=== PATIENT | male | born 1950 | race Caucasian/White ===

== ENCOUNTER 2017-10-16 09:55 | Emergency (ER) | payer OTHER ==
[2017-10-16] MEDS ORDERED: TYLENOL 325 MG PO ONE (10:11)
--- NOTE | 2017-10-16 10:11 | ERPHSYRPT ---
- History of Present Illness Time Seen by Provider: 10/16/17 10:07 Source: patient, family Exam Limitations: no limitations Physician History: The patient is a 67-year-old right-handed male with his complaining that he tripped at work this morning 2 hours ago falling onto his right side. He did not lose consciousness. He hit his head on the concrete floor as well as his right shoulder. He complains of pain to his right side of his head, right side of his neck, and right shoulder. His past medical history is significant for A. fib, high cholesterol, hypertension, diabetes, and hypothyroidism. He is on Coumadin. Occurred: this morning Reason for Fall: tripped, fell from standing pos Injuries/Pain Location: head, neck, upper extremity (right shoulder) Loss of Consciousness: no loss of consciousness Quality: sharpness Severity of Pain-Max: moderate Severity of Pain-Current: moderate Modifying Factors: Improves With: other (sling to right arm) Associated Symptoms (Fall): extremity injury (right shoulder), headache, neck pain Allergies/Adverse Reactions: amiodarone Allergy (Verified 10/16/17 10:16) Home Medications: Diazepam 5 mg [Valium 5 MG] 5 mg PO BID 12/27/13 [History] Digoxin 0.125 mg Tablet [Lanoxin 0.125MG TABLET] 0.125 mg PO HS 12/27/13 [ History] Enalapril Maleate 5 mg PO DAILY 12/27/13 [History] Ergocalciferol (Vitamin D2) [Vitamin D] 50,000 unit PO WEEKLY 12/27/13 [History] Furosemide [Lasix] 40 mg PO HS 12/27/13 [History] Metoprolol Succinate 50 mg [Toprol Xl 50 MG] 50 mg PO DAILY 12/27/13 [ History] Potassium Chloride 10 Meq Tab* [Klor Con 10 MEQ] 10 meq PO BID 12/27/13 [ History] Pravastatin Sodium 40 mg PO HS 12/27/13 [History] Warfarin Sodium [Coumadin] 4 mg PO DAILY 12/27/13 [History] Levothyroxine Sodium 100 Mcg [Synthroid 100 Mcg] 100 mcg PO DAILY 05/05/14 [History] Hx Tetanus, Diphtheria Vaccination/Date Given: Yes Hx Influenza Vaccination/Date Given: Yes (2013) Hx Pneumococcal Vaccination/Date Given: Yes (2012) - Review of Systems Constitutional: No Fever, No Chills Eyes: No Symptoms Ears, Nose, & Throat: No Symptoms Respiratory: No Cough, No Dyspnea Cardiac: No Chest Pain, No Edema, No Syncope Abdominal/Gastrointestinal: No Abdominal Pain, No Nausea, No Vomiting, No Diarrhea Genitourinary Symptoms: No Dysuria Musculoskeletal: Neck Pain, Fall, Injury Skin: No Rash Neurological: Headache Psychological: No Symptoms Endocrine: No Symptoms Hematologic/Lymphatic: No Symptoms Immunological/Allergic: No Symptoms All Other Systems: Reviewed and Negative - Past Medical History Pertinent Past Medical History: Yes Cardiac History: Arrhythmia, Congestive Heart Failure, Coronary Artery Disease, High Cholesterol, Hypertension Respiratory History: CHF Endocrine Medical History: Diabetes Type I, Hypothyroidism Musculoskeletal History: No Pertinent History GI Medical History: No Pertinent History History: No Pertinent History Psycho-Social History: No Pertinent History Male Reproductive Disorders: No Pertinent History - Past Surgical History Past Surgical History: Yes Neuro Surgical History: No Pertinent History Cardiac: No Pertinent History Respiratory: No Pertinent History Gastrointestinal: No Pertinent History Genitourinary: No Pertinent History Musculoskeletal: No Pertinent History Male Surgical History: No Pertinent History Other Surgical History: rt rotator cuff x2. thyroid removed. bruised tissue removed from lt thigh - Social History Smoking Status: Never smoker Exposure to second hand smoke: No Drug Use: none Patient Lives Alone: No - Nursing Vital Signs Nursing Vital Signs: Initial Vital Signs Temperature 98.1 F 10/16/17 10:09 Pulse Rate 55 L 10/16/17 10:09 Respiratory Rate 18 10/16/17 10:09 Blood Pressure 174/98 10/16/17 10:09 O2 Sat by Pulse Oximetry 96 10/16/17 10:09 Pain Scale Pain Intensity 6 - Conover Coma Score Best Eye Response (Conover): (4) open spontaneously Best Verbal Response (Angelica): (5) oriented Best Motor Response (Angelica): (6) obeys commands Angelica Total: 15 - Physical Exam General Appearance: no apparent distress, alert Head Injury: no evidence of injury Eye Exam: PERRL/EOMI ENT Exam: airway nml Neck Exam: pain on movement of neck, tender lateral (right) Respiratory/Chest Exam: normal breath sounds, No chest tenderness, No respiratory distress Cardiovascular Exam: normal heart sounds, regular rate/rhythm Gastrointestinal Exam: soft, No tenderness, No distention, No guarding, No ecchymosis Rectal Exam: not done Back Exam: normal inspection, No vertebral tenderness Extremity Exam: limited range of motion, pain with movement, swelling, tenderness, other (right shoulder has limited ROM, pain with movement, swelling with bruising to apex.) Neurologic Exam: alert, oriented x 3, cooperative, sensation nml, No motor deficits Skin Exam: ecchymosis SpO2 Interpretation: normal - Radiology Exams Right Shoulder X-ray Interpretation: Reviewed by me, Teleradiologist Report, Negative, No Fracture, Other (deformity of distal left clavicle consistent witgh history of prior surgery per Dr Basurto) - CT Exams Head CT Interpretation: Negative, Discussed w/radiologist (per Dr Carbone), No/ Intracranial Hemorrhag Cervical Spine CT Interpretation: Negative, Tele-radiologist Report (per Dr Carbone) Ordered Tests: Active Orders 24 hr Category Date Time Status Cold Application STAT Care 10/16/17 10:11 Active CERVICAL SPINE WO CONTRAST [CT] Stat Exams 10/16/17 10:12 Taken HEAD WITHOUT CONTRAST [CT] Stat Exams 10/16/17 10:12 Taken SHOULDER Stat Exams 10/16/17 10:11 Taken Medication Summary Discontinued Medications Generic Name Dose Route Start Last Admin Trade Name Luan PRN Reason Stop Dose Admin Acetaminophen 975 mg 10/16/17 10:11 10/16/17 10:58 Tylenol 325 Mg PO 10/16/17 10:12 975 mg STAT ONE Administration Acetaminophen Confirm 10/16/17 10:22 Tylenol 325 Mg Administered 10/16/17 10:23 Dose 975 mg .ROUTE .STK-MED ONE - Progress Progress: improved Counseled pt/family regarding: diagnosis, rad results - Departure Time of Disposition: 12:21 Departure Disposition: Home Clinical Impression: Multiple contusions Condition: Stable Critical Care Time: No Referrals: RROY MARROQUIN [Primary Care Provider] - Additional Instructions: You have multiple contusions the head and cervical spine CT scans were normal. The x-ray of your right shoulder did not show any fractures but it did show some old deformities from the prior surgery. This was reported by the radiologist. Take tramadol 50 mg every 4-6 hours as needed. Wear the sling as needed for comfort. You have tomorrow off from work as well as today. Follow- up with your primary medical doctor on Wednesday or Wednesday if the condition has not improved. Apply ice to your shoulder as needed. Prescriptions: Tramadol HCl 50 mg PO Q4-6HPRN PRN #10 tablet PRN Reason: Pain
[2017-10-16 10:16] VITALS: BP 174/98
[2017-10-16] MEDS ORDERED: TYLENOL 325 MG ONE (10:22)
[2017-10-16 10:59] VITALS: PULSE 58; O2SAT 99
--- NOTE | 2017-10-16 21:01 | XRAY ---
Indication: Pain following fall. Multiple contiguous axial images obtained through the head without contrast as ordered. Comparison: None. Age-appropriate global atrophy and minimal periventricular degenerative micro-ischemia. No acute intracranial hemorrhage, abnormal extra-axial fluid collection, or mass effect. Fourth ventricle is midline without hydrocephalus. Bony calvarium intact. Visualized paranasal sinuses and mastoid air cells are clear. Impression: Nonacute senile brain. Comment: Preliminary interpretation was made by [facility]. No critical discrepancy. CTDI 50.87
--- NOTE | 2017-10-16 21:07 | XRAY ---
Indication: Pain following fall. Multiple contiguous axial images obtained through the cervical spine. Sagittal and coronal reformatted images obtained. Comparison: None. Axial images negative for acute fracture, suspicious bony lesions, or spinal canal stenosis. Mild/moderate C5-C7 degenerative endplate spurring and bilateral degenerative facet hypertrophy. Sagittal and coronal reformatted images in the series normal alignment with mild C5-C7 disc space narrowing. Very minimal C3-C5 anterior wedging deformities. No acute compression fracture, subluxation, or jumped facet. Normal-appearing craniocervical junction. Visualized noncontrasted soft tissues demonstrates scattered carotid calcifications bilaterally. Right thyroidectomy and 5 mm left thyroid nodule/cyst. Lung apices clear. CT head reported separately Impression: 1. Minimal C3-C5 anterior wedging deformities of uncertain chronicity. 2. C5-C7 degenerative disc disease. 3. 5 mm left thyroid nodule/cyst better evaluated with ultrasound if clinically warranted. Comment: Preliminary interpretation was made by [facility]. No critical discrepancy. CTDI 59.34
--- NOTE | 2017-10-16 21:11 | XRAY ---
Indication: Pain following fall. Right clavicle surgery. Comparison: None 3 views of the right shoulder demonstrates osteopenia, mild inferior humeral head subluxation, moderate glenohumeral degenerative arthropathy, postsurgical distal clavicle deformity, and multilevel spinal degenerative spondylosis. No other bony, articular, or soft tissue abnormalities. Comment: Preliminary interpretation was made by [facility]. No discrepancy.
== END 2017-10-16 12:48 | disposition home or self-care (01) ==
LOC: ED 09:55
DX: R51 Headache (principal); M25.511 Pain in right shoulder; M54.2 Cervicalgia; W01.198A Fall on same level from slipping, tripping and stumbling with subsequent striking against other object, initial encounter; Y99.0 Civilian activity done for income or pay; Z79.01 Long term (current) use of anticoagulants; Z79.899 Other long term (current) drug therapy
CPT/HCPCS: 70450; 72125; 73030; 99283; A9270-GY

== ENCOUNTER 2018-01-29 20:45 | Emergency (ER) | payer OTHER ==
[2018-01-29 21:49] LABS: PROTIME 27.1 SECONDS (8.83-12.87)
[2018-01-29 21:49] LABS: INR 2.31 (0.8-3.0)
[2018-01-29] MEDS ORDERED: Adacel Vial IM (22:56)
[2018-01-29] MEDS: Adacel Vial IM (22:59)
== END 2018-01-29 23:03 | disposition home or self-care (01) ==
LOC: ED 20:45
CPT/HCPCS: 36415; 70450; 70486; 85610; 90471; 90715

== ENCOUNTER 2019-10-02 08:35 | Day surgery (SDC) | payer MEDICARE, OTHER ==
--- NOTE | 2019-09-29 11:17 | HP ---
DATE OF SURGERY: 10/02/2019 HISTORY OF PRESENT ILLNESS: The patient is a 69 year old with six week history of diarrhea, some black stools, mostly after he eats. He has been on Coumadin. INR was 10 at one time. No recent endoscopy. He may have had a colonoscope back in the 1989'. He had some melanoma. He is in need of upper endoscopy to rule out gastritis, peptic ulcer disease, esophagitis. For his change in bowel habits, he is in need of colonoscopy as he has not had a recent colonoscopy. I feel he will benefit from colonoscopy for further evaluation. He is to hold his Coumadin preoperatively. PAST MEDICAL HISTORY: Obesity. Bypass surgery. Atrial fibrillation. Reflux. Congestive heart failure in the past. Hypercholesterolemia. Hypothyroidism in the past. PAST SURGICAL HISTORY: Cholecystectomy. Thyroid surgery. Gastric bypass in the past. MEDICATIONS: He has been on diazepam, digoxin, Enalapril, Euthyrox, furosemide, ketorolac, metoprolol, levofloxacin, Mag-Ox, vitamin K, potassium chloride, Pravastatin, prednisolone, warfarin. ALLERGIES: MULTAQ (ACCORDING TO HIS FAMILY DOCTOR GEETA MARROQUIN ALTHOUGH HE TOLD US HE IS NOT ALLERGIC TO IT). FAMILY HISTORY: Hypertension, atrial fibrillation. SOCIAL HISTORY: No smoking or alcohol abuse. REVIEW OF SYSTEMS: Fourteen systems reviewed pertinent for as noted above. No chest pain or palpitations. Other systems negative or noncontributory as above and per preadmission questionnaire. PHYSICAL EXAMINATION: GENERAL: No acute distress. HEENT: Sclerae nonicteric. NECK: No JVD. CHEST: Equal excursion, nonlabored breathing. CVS: Regular rate and rhythm. ABDOMEN: Soft. No peritoneal signs. EXTREMITIES: No significant edema. NEURO: Alert, oriented, moving extremities symmetrically. No gross motor deficits noted. RECTAL: Deferred timed to endoscopy exam. IMPRESSION: Question of melena and also change in bowel habits, cramping and diarrhea. He is in need of upper endoscopy to rule out peptic ulcer disease, marginal ulcer, esophagitis or gastritis. He is also in need of colonoscopy given change in bowel habits, the fact that he has not had one in years to evaluate for colitis, neoplasia or other etiology. He was shown the risk sheet explained the procedure in detail including but not limited to bleeding or infection, risk of bowel injury or perforation possibly requiring open procedure, risk of missed or nondiagnosis or incomplete exam possibly requiring barium enema or barium swallow, other studies or procedures, general risk of anesthesia or sedation, risk of bowel prep but not limited to. There is a possibility may not be able to visualize part of his stomach as he had Samia-en-Y bypass. Possibility of inability to diagnose the etiology of his symptoms. He may still need follow up with his bariatric surgeon, Dr. Pleitez. He understands and agrees to the planned procedure and will proceed with EGD and colonoscopy as an outpatient.
[2019-10-02] MEDS ORDERED: Lactated Ringers 1,000 ML IV ONE (08:51)
[2019-10-02] MEDS ORDERED: Lactated Ringers 1,000 ML IV SCH (09:00)
[2019-10-02] MEDS ORDERED: DIPRIVAN 200 MG/20 ML IV ONE (10:34)
[2019-10-02] MEDS ORDERED: Ketamine HCl 50 MG/ML ONE (10:34)
[2019-10-02 12:10] LABS: BLOOD UREA NITROGEN 7 mg/dL (9-20); Creatinine 1 0.62 mg/dL (0.66-1.25)
[2019-10-02 12:29] VITALS: BP 121/72; PULSE 69; O2SAT 96
--- NOTE | 2019-10-03 09:18 | OP ---
SURGERY DATE/TIME: 10/02/2019 1036 PREOPERATIVE DIAGNOSES: 1) History of melena, need for upper endoscopy. 2) Change in bowel habits and cramping, need for screening colonoscopy. POSTOPERATIVE DIAGNOSES: 1) Minimal gastric erythema and possible minimal gastritis. 2) Large near obstructing right colon mass around the hepatic flexure area. 3) Multiple colon polyps. 4) Diverticulosis. 5) Fair bowel prep. 6) ASA Class III. 7) Withdrawal time eleven minutes. PROCEDURES: 1) Esophagogastrojejunoscopy with cold biopsy of stomach to evaluate for Helicobacter pylori. The patient had prior gastric bypass. 2) Cold biopsy distal esophagus to evaluate for short segment distal gastroesophagitis versus normal variation of gastroesophageal junction. 3) Colonoscopy to ascending colon with multiple cold biopsy of large exophytic ulcerated near obstructing right colon mass with ink spot tattooing of distal margin of the mass. 4) Hot snare polypectomy of transverse colon polyps x2. 5) Hot snare polypectomy of rectosigmoid colon polyp x1. 6) Hot snare polypectomy rectal polyp a couple centimeters in from the anal verge removed with hot snare polypectomy. 7) Hot biopsy descending colon small polyp. SURGEON: Dr. Collin Ware. ANESTHESIA: MAC. ESTIMATED BLOOD LOSS: Minimal. INDICATIONS: As noted above. Risks and benefits explained in detail and not limited to and consent obtained. DESCRIPTION OF PROCEDURE AND FINDINGS: The patient is taken to the operating room. MAC anesthesia introduced. After official time out and no disagreement with planned procedure, bite block positioned. Video gastroscope down through the esophagus down into the small bowel which was grossly unremarkable. The scope pulled back to gastrojejunostomy anastomosis. There were some suture material there but no evidence of any marginal ulcer. Given his symptom complaints of melena cold biopsy is taken to evaluate for Helicobacter pylori from the small stomach pouch so again this was cold biopsy of stomach not the antrum. Additionally, gastroesophageal junction was about 40 cm and cold biopsy taken from distal esophageal junction to evaluate for short segment distal gastroesophagitis versus normal variation of gastroesophageal junction. The remainder of the esophagus grossly unremarkable. No signs of any obvious mucosal lesions. The patient had a prior gastric Samia-en-Y gastric bypass. Colonoscopy to ascending colon. Multiple cold biopsies of right colon mass ink spot tattooing in distal location as well as snare polypectomy transverse colon polyps x2, rectosigmoid colon polyp x1, rectal polyp x1 and hot biopsy descending colon polyp x1. The patient remained under MAC anesthesia. Digital rectal exam did not reveal any rectal masses. Video colonoscope passed up through the tortuous sigmoid, descending, transverse and ascending colon around to the hepatic flexure area, whether distal ascending colon versus proximal transverse colon right around the splenic flexure area, the scope was able to be passed through this large exophytic mass in this area. It was near obstructing. The scope would not quite reach down to the cecal area. Multiple cold biopsies of this mass were taken for pathology that seemed to be carcinoma. The distal edge is marked with ink spot tattooing with 1 cc in a couple different locations. The scope was then carefully withdrawn. There were two polyps in the transverse colon removed with hot snare polypectomy. Good hemostasis noted. They appeared to be removed in toto. The scope pulled back to descending colon. Small polyp removed with hot biopsy forceps and brief bursts of cautery. Good hemostasis noted. He had some diverticulosis in the left colon. The scope was then pulled down to the rectosigmoid area about 18 to 20 cm was another 5 or 6 mm polyp. It was a little bit elongated and removed with hot snare polypectomy with brief bursts of cautery. It appeared to be removed in toto. Good hemostasis noted. Scope pulled down into the rectum. A couple centimeters above the rectal verge is another 6 or 7 mm polyp removed with hot snare polypectomy with brief bursts of cautery. Good hemostasis noted. The scope is withdrawn. The patient tolerated the procedure well. There were no immediate complications. Findings discussed with the family out in the waiting area. Will need to arrange for resection or CEA level and order outpatient CT scan.
== END 2019-10-02 12:30 | disposition home or self-care (01) ==
LOC: SDC 08:35
PROVIDERS: ATTEND Surgery
DX: Z12.11 Encounter for screening for malignant neoplasm of colon (principal); C18.2 Malignant neoplasm of ascending colon; K57.30 Diverticulosis of large intestine without perforation or abscess without bleeding; K63.5 Polyp of colon; R19.7 Diarrhea, unspecified; Z79.01 Long term (current) use of anticoagulants; Z79.899 Other long term (current) drug therapy
CPT/HCPCS: 36415; 82378; 82565; 84520; 88305; J2704

== ENCOUNTER 2019-10-23 10:48 | Day surgery (SDC) | payer MEDICARE, OTHER ==
--- NOTE | 2019-10-23 08:31 | HP ---
AMENDED REPORT: DATE OF SURGERY: 10/23/2019 HISTORY OF PRESENT ILLNESS: The patient is a 69 year old who had colon cancer perforation into the duodenum and anterior pancreas area. He is in need of Port-A-Cath placement, senior living IV treatments. PAST MEDICAL HISTORY: Gastric bypass. Cholecystectomy. Thyroid surgery in the past. Right colectomy. Tumor debulking anterior pancreas and duodenum. PAST SURGICAL HISTORY: MEDICATIONS: Diazepam. Digoxin. Enalapril. Euthyrox. Furosemide. Ketorolac. Metoprolol. Levothyroxine. Magnesium oxide. Vitamin K. Potassium chloride. Pravastatin. Prednisolone. Warfarin. ALLERGIES: HE IS SENSITIVE TO MULTAQ. FAMILY HISTORY: Hypertension. Atrial fibrillation. SOCIAL HISTORY: No smoking or alcohol abuse. REVIEW OF SYSTEMS: Fourteen systems reviewed pertinent for as noted above. No chest pain or palpitations. He did have preoperative CEA of 8.1 that is elevated. Other systems negative or noncontributory as above and per preadmission questionnaire. PHYSICAL EXAMINATION: GENERAL: A chronically ill gentleman. HEENT: Sclerae nonicteric. NECK: No JVD. CHEST: Equal excursion, nonlabored breathing. CVS: Regular rate and rhythm. ABDOMEN: Soft. Incision healing well. He had part of his leonardo removed. EXTREMITIES: No cyanosis. NEURO: Alert, oriented, moving extremities symmetrically. PSYCH: Appropriate mood and affect. IMPRESSION: Advanced colon cancer infiltrated, perforated into anterior pancreatic and duodenal area. He is need of senior living IV access for IV treatments. I feel he is a candidate or Port-A-Cath placement. General risk of bleeding or infection, risk of pneumothorax or thrombosis, risk of hematoma or seroma formation, risk of arterial injury, remote risk of major venous tear, risk of Port-A-Cath fracture, failure or infection possibly requiring removal. General risk of aches or pains, risk of anesthesia, risk of cardiopulmonary event but not limited to. He understands and agrees to the planned procedure, will proceed with outpatient Port-A-Cath placement.
[~2019-10-23 10:48] MED LIST: Lactated Ringers 1,000 ML IV ONE; XYLOCAINE 1% HCL 20 ML MDV ONE
[2019-10-23] MEDS ORDERED: Lactated Ringers 1,000 ML IV SCH (11:00)
[2019-10-23] MEDS ORDERED: CEFAZOLIN 2 GM-D5W BAG** 2 GM/50 ML ML IV SCH (11:00)
[2019-10-23] MEDS ORDERED: Versed 2 MG/2 ML Injection ONE (13:33)
[2019-10-23] MEDS ORDERED: SUBLIMAZE 100 MCG/2 ML ONE (13:33)
[2019-10-23] MEDS ORDERED: XYLOCAINE 1% HCL 20 ML MDV ONE (14:41)
[2019-10-23 15:25] VITALS: BP 149/78; PULSE 71; O2SAT 97
--- NOTE | 2019-10-24 08:08 | XRAY ---
Exam: Fluoroscopy for venous access from 10/23/2019. Comparison: None. Indication: Port placement. Findings: One second of intraoperative fluoroscopy time was utilized. A single AP intraoperative C-arm image reveals the distal tip of the portacatheter to be pointing inferiorly just above the cavoatrial junction. Lateral osteophyte formation is seen within the mid thoracic spine. Impression: 1. As above.
--- NOTE | 2019-10-24 09:22 | OP ---
SURGERY DATE/TIME: 10/23/2019 1335 PREOPERATIVE DIAGNOSIS: History of perforated ascending colon cancer perforating into the duodenum anterior pancreas area, need for long-term IV access for IV treatments. POSTOPERATIVE DIAGNOSIS: History of perforated ascending colon cancer perforating into the duodenum anterior pancreas area, need for long-term IV access for IV treatments. PROCEDURE: Tunnel Port-A-Cath placement with C-arm fluoroscopy. SURGEON: Dr. Collin Ware. ANESTHESIA: MAC. ESTIMATED BLOOD LOSS: Minimal. INDICATIONS: As noted above. Risks and benefits explained in detail and not limited to and consent obtained. DESCRIPTION OF PROCEDURE AND FINDINGS: The patient is taken to the operating room. MAC anesthesia introduced. After official time out and no disagreement with the planned procedure, he was prepped and draped in the usual sterile fashion in Trendelenburg position. 1% Lidocaine local infiltrated left subclavicular area and around the port pocket area. An 18 gauge cannulation needle inserted on first pass. Good dark nonpulsatile venous return. Guide wire passed without difficulty. Lung wu noted to be up bilaterally. Once C-arm was available because of issues with the machine and restarting. Lung wu noted to be up bilaterally. The guide wire is in the superior vena cava. At this point transverse incision made in subcu. Port pocket created with aid of cautery. Port secured to the chest wall with Prolene suture x2. Catheter tunneled down from cannulation stab wound down to port pocket area. The dilator and break away sheath easily fed over the guide wire. Catheter fed down break away sheath. The tip was in the distal superior vena cava on C-arm fluoroscopy. Catheter is cut to appropriate length snapped on the port at the hub. It aspirated dark, nonpulsatile venous return with ease. It was flushed with injectable heparinized saline provided by the staff with ease. Tip was in good location distal superior vena cava. Lung wu noted to be up bilaterally. It was felt that no further x-rays were necessary at this point. The port had been secured to the chest wall with Prolene suture x2. Subcu closed with 3-0 Vicryl. Skin closed with 4-0 Vicryl. Cannulation stab wound closed with 4-0 Vicryl. Steri-Strips and sterile dressing applied. The patient tolerated the procedure well. Findings discussed with the family over the phone. The staff are going to remove his residual leonardo from the transverse incision at the end of this procedure.
== END 2019-10-23 15:35 | disposition home or self-care (01) ==
LOC: SDC 10:48
PROVIDERS: ATTEND Surgery
DX: Z85.038 Personal history of other malignant neoplasm of large intestine (principal); K26.5 Chronic or unspecified duodenal ulcer with perforation; Z79.899 Other long term (current) drug therapy; Z79.01 Long term (current) use of anticoagulants
CPT/HCPCS: 77001; 82962; 93005; C1788; J0690; J1642; J2250; J3010

== ENCOUNTER 2022-10-29 06:42 | Emergency (ER) | payer MEDICARE, OTHER ==
[2022-10-29 06:51] VITALS: RESP 18; TEMP 97.5; O2SAT 99
[2022-10-29] MEDS ORDERED: MORPHINE SULFATE 4 MG INJ ONE (07:20)
[2022-10-29] MEDS ORDERED: MORPHINE SULFATE 4 MG INJ IM ONE (07:21)
--- NOTE | 2022-10-29 07:40 | ERPHSYRPT ---
- History of Present Illness Time Seen by Provider: 10/29/22 07:25 Source: patient Exam Limitations: no limitations Patient Subjective Stated Complaint: FELL AT WORK, HURT MY SHOULDER Triage Nursing Assessment: pt arrived via EMS. Pt alert and oriented x4, pleasant and cooperative. Pt fell at work this morning, went to go to pull on the door handle to open the door and missed the handle, falling onto his rt shoulder. Pt c/o rt shoulder pain. Rt shoulder is bruised with obvious deformity. Pt has strong rt radial pulse. Pt unable to lift his rt arm up. Physician History: 72 years old male with a history of hypertension, hyperlipidemia, diabetes mellitus, atrial fibrillation on Coumadin presented in the ER with chief complaint of right shoulder injury. Patient reports he pulled on a door, missed the handle and twisted around to fall and right shoulder. Did not hit his head, no loss of consciousness. Denies any neck pain or headache. Moderate intensity sharp pain right shoulder with bruising and swelling and inability to move his shoulder because of pain. No tingling numbness or weakness in the hand/fingers. No injury anywhere else. Occurred: just prior to arrival Method of Injury: fell Quality: sharpness Severity of Pain-Max: moderate Severity of Pain-Current: moderate Extremities Pain Location: shoulder: right Modifying Factors: Improves With: immobilization. Worsens With: movement Associated Symptoms: none Allergies/Adverse Reactions: amiodarone Allergy (Verified 10/29/22 06:48) Home Medications: Diazepam 5 mg [Valium 5 MG] 5 mg PO BID 12/27/13 [History] Digoxin 0.125 mg Tablet [Lanoxin 0.125MG TABLET] 0.125 mg PO HS 12/27/13 [History] Enalapril Maleate 10 mg PO DAILY 12/27/13 [History] Furosemide [Lasix] 40 mg PO BID 12/27/13 [History] Potassium Chloride Tab* [Klor Con] 20 meq PO DAILY 12/27/13 [History] Pravastatin Sodium 40 mg PO HS 12/27/13 [History] Warfarin Sodium [Coumadin] 4 mg PO DAILY 12/27/13 [History] Cholecalciferol (Vitamin D3) [Vitamin D3] 5,000 unit PO DAILY 09/22/19 [History] Cyanocobalamin (Vitamin B-12) [Vitamin B12] 2,500 mcg PO DAILY 09/22/19 [History] Lactobacillus Combination No.4 [Probiotic] 1 each PO DAILY 09/22/19 [History] Levothyroxine Sodium [Euthyrox] 137.5 mcg PO DAILY 09/22/19 [History] Pediatric Multivitamin No.136 [Children Multivitamin] 2 each PO DAILY 09/22/19 [ History] Thiamine HCl [Vitamin B-1] 125 mg PO DAILY 09/22/19 [History] Hx Tetanus, Diphtheria Vaccination/Date Given: Yes Hx Influenza Vaccination/Date Given: Yes Hx Pneumococcal Vaccination/Date Given: Yes Immunizations Up to Date: Yes Travel Risk - International Travel Have you traveled outside of the country in past 3 weeks: No - Coronavirus Screening Are you exhibiting any of the following symptoms?: No Close contact with a COVID-19 positive Pt in past 14-21 Days: No - Vaccine Status Have you recieved a Covid-19 vaccination: Yes [employer]: [employer] - Vaccination Dates Date of 2cond Vaccination (if applicable): . - Review of Systems Constitutional: No Symptoms Eyes: No Symptoms Ears, Nose, & Throat: No Symptoms Respiratory: No Symptoms Cardiac: No Symptoms Abdominal/Gastrointestinal: No Symptoms Genitourinary Symptoms: No Symptoms Musculoskeletal: Fall, Injury, Joint Pain, Joint Swelling Skin: No Symptoms Neurological: No Symptoms Psychological: No Symptoms Endocrine: No Symptoms Immunological/Allergic: No Symptoms - Past Medical History Pertinent Past Medical History: Yes Neurological History: No Pertinent History ENT History: No Pertinent History Cardiac History: Arrhythmia, Congestive Heart Failure, Coronary Artery Disease, High Cholesterol, Hypertension Respiratory History: CHF, Sleep Apnea Endocrine Medical History: Diabetes Type II, Hypothyroidism Musculoskeletal History: No Pertinent History GI Medical History: Colorectal Cancer, Gallbladder Disease History: No Pertinent History Psycho-Social History: No Pertinent History Male Reproductive Disorders: No Pertinent History Other Medical History: hx of A-fib. - Past Surgical History Past Surgical History: Yes Neuro Surgical History: No Pertinent History Cardiac: No Pertinent History Respiratory: No Pertinent History Gastrointestinal: Cholecystectomy, Colon Resection, Other Genitourinary: No Pertinent History Musculoskeletal: Joint Replacement, Orthopedic Surgery Male Surgical History: No Pertinent History Other Surgical History: rt rotator cuff x2. thyroid removed. bruised tissue removed from lt thigh. right knee replacement. gastric bypass - Social History Smoking Status: Former smoker Exposure to second hand smoke: No Drug Use: none Patient Lives Alone: No - Nursing Vital Signs Nursing Vital Signs: Initial Vital Signs Temperature 97.5 F 10/29/22 06:48 Pulse Rate 58 L 10/29/22 06:48 Respiratory Rate 18 10/29/22 06:48 Blood Pressure 125/62 10/29/22 06:48 O2 Sat by Pulse Oximetry 99 10/29/22 06:48 Pain Scale Pain Intensity 4 - Physical Exam General Appearance: no apparent distress, alert Eyes, Ears, Nose, Throat Exam: normal ENT inspection Neck Exam: normal inspection, non-tender, supple, full range of motion Cardiovascular/Respiratory Exam: normal breath sounds, regular rate/rhythm Shoulder Exam: bone tenderness, ecchymosis, limited ROM (Right anterior shoulder ecchymosis, swelling, tenderness, very limited movement because of pain.), pain, soft tissue tenderness, swelling Elbow/Forearm Exam: normal inspection, non-tender, no evidence of injury, normal ROM Wrist Exam: normal inspection, non-tender, no evidence of injury, normal ROM Hand Exam: normal inspection, non-tender, no evidence of injury, normal ROM Neuro/Tendon Exam: normal sensation, normal motor functions Mental Status Exam: alert, oriented x 3, cooperative Skin Exam: normal color SpO2 Interpretation: normal SpO2: 99 O2 Delivery: Room Air Ordered Tests: Active Orders 24 hr Category Date Time Status SHOULDER Stat Exams 10/29/22 07:25 Taken Medication Summary Discontinued Medications Generic Name Dose Route Start Last Admin Trade Name Luan PRN Reason Stop Dose Admin Morphine Sulfate Confirm 10/29/22 07:20 Morphine Sulfate 4 Mg/Ml Injection Administered 10/29/22 07:21 Dose 4 mg .ROUTE .STK-MED ONE Morphine Sulfate 4 mg 10/29/22 07:21 10/29/22 07:25 Morphine Sulfate 4 Mg/Ml Injection IM 10/29/22 07:22 4 mg STAT ONE Administration - Progress Progress: improved, pain not gone completely, re-examined Progress Note: 10/29/22 07:40 72 years old male with a history of hypertension, hyperlipidemia, diabetes mellitus, atrial fibrillation on Coumadin presented in the ER with chief complaint of right shoulder injury. Patient reports he pulled on a door, missed the handle and twisted around to fall and right shoulder. Did not hit his head, no loss of consciousness. Denies any neck pain or headache. Moderate intensity sharp pain right shoulder with bruising and swelling and inability to move his shoulder because of pain. No tingling numbness or weakness in the hand/fingers. No injury anywhere else. Patient has moderate swelling with ecchymosis anterior right shoulder with very limited mobility because of pain. Distal neurovascular well intact. Given pain medicine for symptomatic relief. 10/29/22 08:10 Patient is better on reevaluation. X-rays reviewed reviewed by me revealed fracture surgical neck/upper shaft right humerus with some displacement. Placed in a sling. Has intact distal neurovascular. Patient has been advised to go to bone and joint clinic after discharge from here which he is going through. Given pain medications to go home to take as needed. Patient denied hitting his head or any injury anywhere else. Do not think needs imaging or any other work-up and it was a clear mechanical fall, patient is stable for discharge. Counseled pt/family regarding: diagnosis, need for follow-up, rad results Medical Desision Making - Diagnostic Testing Diagnostic test were ordered, analyzed, and reviewed by me: Yes Radiological Interpretation: Interpreted by me, Reviewed by me - Risk of complications The pt has a mod risk of morbidity or mortality based on: Need for prescription drug management - Departure Departure Disposition: Home Clinical Impression: Fracture, humerus closed, Fall Condition: Stable Critical Care Time: No Referrals: SENDY DELA CRUZ NP [Primary Care Provider] - Follow up with PCP 1 day Instructions: Shoulder Fracture (DC) Additional Instructions: Follow-up with bone and joint clinic for reevaluation today. Take pain medications as needed. Turn to ER for worsening pain/weakness of right upper extremity. [facility] [address] [place] [id number] Prescriptions: Hydrocodone/Acetaminophen [Hydrocodone-Acetamin 5-325 mg] 1 tab PO Q6HPRN PRN 3 Days #12 tablet MDD 4 PRN Reason: Pain
--- NOTE | 2022-10-29 08:41 | XRAY ---
Indication: Pain following fall. Comparison: October 16, 2017 3 view right shoulder demonstrates new moderately displaced acute humeral neck fracture with mild angulation. Remaining shoulder unchanged again with osteopenia and partial resection distal clavicle.
[2022-10-29 09:08] VITALS: BP 87/44; PULSE 88
[2022-10-29] MEDS ORDERED: Sodium Chloride 0.9% 1000 ML 1,000 ML ONE (11:14)
== END 2022-10-29 09:04 | disposition home or self-care (01) ==
LOC: ED 06:42
DX: S42.211A Unspecified displaced fracture of surgical neck of right humerus, initial encounter for closed fracture (principal); W18.39XA Other fall on same level, initial encounter; Y99.0 Civilian activity done for income or pay; I11.0 Hypertensive heart disease with heart failure; I50.9 Heart failure, unspecified; E78.5 Hyperlipidemia, unspecified; E11.9 Type 2 diabetes mellitus without complications; Z79.01 Long term (current) use of anticoagulants; Z79.899 Other long term (current) drug therapy
CPT/HCPCS: 73030; 96372; 99283; J2270